=== PATIENT | female | born 1955 ===

== ENCOUNTER 2017-03-18 10:20 | Emergency (ER) | payer MEDICAID ==
[2017-03-18 10:21] VITALS: BMI 31.5
[2017-03-18 10:25] VITALS: BP 131/67; PULSE 71; TEMP 98.4; O2SAT 99
--- NOTE | 2017-03-18 11:30 | ED PDOC ---
HPI: General Adult Time Seen by Provider: 03/18/17 10:37 Chief Complaint (Nursing): Lower Extremity Problem/Injury History Per: Patient Additional Complaint(s): Pt. states she's has atraumatic b/l knee pain and swelling x 1 month. Reports that pain is worse with walking. Denies trauma, fever, calf pain, SOB. Past Medical History Reviewed: Historical Data, Nursing Documentation, Vital Signs Vital Signs: Last Vital Signs Temp 98.4 F 03/18/17 10:24 Pulse 71 03/18/17 10:24 Resp BP 131/67 03/18/17 10:24 Pulse Ox 99 03/18/17 11:31 - Medical History PMH: HTN - Family History Family History: States: No Known Family Hx - Immunization History Hx Tetanus Toxoid Vaccination: No Hx Influenza Vaccination: No Hx Pneumococcal Vaccination: No - Home Medications Home Medications: Ambulatory Orders Medication Instructions Recorded Enalapril Maleate [Enalapril] 10 mg PO DAILY 11/14/15 MetFORMIN [glucOPHAGE] 1,000 mg PO DAILY 11/14/15 Loratadine [Claritin] 10 mg PO DAILY #30 tab 04/07/16 Meloxicam [Mobic] 7.5 mg PO DAILY PRN #30 tab 03/18/17 - Allergies Allergies/Adverse Reactions: Allergies Allergy/AdvReac Type Severity Reaction Status Date / Time No Known Allergies Allergy Verified 04/07/16 06:23 Review of Systems ROS Statement: Except As Marked, All Systems Reviewed And Found Negative Physical Exam - Physical Exam Appears: Positive for: Well, Non-toxic, No Acute Distress Skin: Positive for: Normal Color, Warm. Negative for: Rash Pulses-Dorsalis Pedis (L): 2+ Pulses-Dorsalis Pedis (R): 2+ Extremity: Positive for: Normal ROM, Other (b/l knees with mild tenderness and FROM actively and no swelling or warmth or erythema). Negative for: Pedal Edema , Calf Tenderness (or swelling) Neurologic/Psych: Positive for: Alert, Oriented - ECG O2 Sat by Pulse Oximetry: 99 - Radiology X-Ray: Interpreted by Me (Knee x-rays b/l) X-Ray Interpretation: Other (DJD; no fx) - Progress ED Course And Treament: B/L knee x-rays ordered. Disposition - Clinical Impression Clinical Impression: Knee pain - Patient ED Disposition Is Patient to be Admitted: No - Disposition Referrals: [facility] [Outside] Disposition: Routine/Home Disposition Time: 12:59 Condition: STABLE Prescriptions: Meloxicam [Mobic] 7.5 mg PO DAILY PRN #30 tab PRN Reason: Pain, Mild (1-3) Instructions: Arthralgia (ED) Print Language: SURINAMESE
[2017-03-18] MEDS ORDERED: Naproxen 500 MG TAB PO ONE (11:50)
[2017-03-18] MEDS: Naproxen 500 MG TAB PO ONE (12:05)
--- NOTE | 2017-03-18 13:29 | RAD ---
PROCEDURE: Left Knee Radiographs. Move HISTORY: Pain. COMPARISON: None. FINDINGS: BONES: Normal. No fracture. JOINTS: Small anterior superior patella enthesophyte. There may be slight spurring of the medial tibial spine Joint spaces preserved. JOINT EFFUSION: Questionable suprapatellar joint effusion. OTHER FINDINGS: None. IMPRESSION: No acute fractures. Questionable small suprapatellar joint effusion
--- NOTE | 2017-03-18 14:30 | RAD ---
PROCEDURE: Right Knee Radiographs. Three views right knee HISTORY: pain COMPARISON: None. FINDINGS: BONES: Performed current study reveals no evidence acute displaced fracture nor dislocation. The osseous structures appear intact. JOINTS: Joint spaces relatively preserved. Small marginal medial osteophyte formation present. Additionally, there are 2 tiny elliptical shaped bony densities within the soft tissues adjacent to to the superior margin of the medial joint space that suggest Kumar-Stieda syndrome. JOINT EFFUSION: None. OTHER FINDINGS: None. IMPRESSION: No evidence of acute displaced fracture nor dislocation. 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
== END 2017-03-18 14:41 | disposition home or self-care (01) ==
LOC: H.ER 10:20
DX: M25.561 Pain in right knee (principal); M25.562 Pain in left knee; I10 Essential (primary) hypertension; Z79.84 Long term (current) use of oral hypoglycemic drugs